=== PATIENT | male | born 1960 | race African-American/Black ===

== ENCOUNTER 2016-09-24 14:26 | Emergency (ER) ==
--- NOTE | 2016-09-24 15:28 | Diag Imaging Result Document ---
PROCEDURE NAME: CERVICAL SPINE COMPLETE - 09/24/2016 CERVICAL SPINE SERIES WITH OBLIQUES (5 VIEWS): FINDINGS: There is extensive anterior osteophyte formation with some bridging osteophyte formation at the C3-4, 4-5, and especially at the C5-6 level. There is no evidence of prevertebral soft tissue swelling. There are small bilateral cervical ribs at C7. There may be foraminal stenosis from the C3 level through the C6-7 level on the right side and at C3-4, 4-5, and 5-6 on the left. IMPRESSION: 1. Degenerative changes. 2. No evidence of acute bony disease.
[2016-09-24] MEDS ORDERED: MOTRIN PO ONE (15:46)
--- NOTE | 2016-09-24 15:48 | Diag Imaging Result Document ---
PROCEDURE NAME: LUMBAR SPINE - 09/24/2016 LUMBAR SPINE SERIES WITH OBLIQUES 6 VIEWS: FINDINGS: The pedicles are intact. There is disk space narrowing at the L4-5 and the L5-S1 disk is fused. There is narrowing of the L2-3 disk space with vacuum disk phenomenon. IMPRESSION: Degenerative disk changes. No evidence of acute bony disease.
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
[2016-09-24 16:12] VITALS: BP 138/88
== END 2016-09-24 16:12 | disposition home or self-care (01) ==
LOC: ED 14:26
DX: S13.4XXA Sprain of ligaments of cervical spine, initial encounter (principal); M54.2 Cervicalgia; M54.5 Low back pain; V43.52XA Car driver injured in collision with other type car in traffic accident, initial encounter
CPT/HCPCS: 72050; 72110